=== PATIENT | female | born 1980 | race Hispanic/Latino ===

== ENCOUNTER 2019-09-10 12:00 | Emergency (ER) | payer SELFPAY ==
[2019-09-10 12:55] LABS: #Lymphocytes 1.6 thou/uL (1.20-3.40); #Monocytes 0.5 thou/uL (0.11-0.59); %Basophils 0.3 % (0.0-1.0); %Eosinophils 0.2 % (0.0-10.0); %Lymphocytes 26.4 % (21.0-51.0); %Monocytes 8.7 % (0.0-10.0); %Neutrophils 64.4 % (42.0-75.0); Hemoglobin 13.3 g/dL (12.0-16.0); Mean Corpuscular HGB CONC 32.5 g/dL (32.0-36.0); Mean Corpuscular Hemoglobin 29.5 pg (27.0-31.0); Mean Corpuscular Volume 90.8 fL (78.0-98.0); Mean Platelet Volume 8.5 fL (7.4-10.4); Platelet Count 304 thou/uL (130-400); RBC Distribution Width 12.3 % (11.5-14.5); Red Blood Cell (RBC) Count 4.52 mill/uL (4.20-5.40); White Blood Cell (WBC) Count 6.2 thou/uL (4.8-10.8)
--- NOTE | 2019-09-10 13:49 | ULT ---
ULTRASOUND PELVIC ULTRASOUND TRANSVAGINAL DOPPLER DUPLEX: DATE: 09/10/2019 HISTORY: 39-year-old female presents with vaginal bleeding and pelvic pain, with positive test TECHNIQUE: Transabdominal transducer and endovaginal transducer used to visualize intrapelvic contents with segura scale, color-flow, and spectral analysis. FINDINGS: Intrapelvic contents are almost completely obscured on the transabdominal images. All findings are ba sed on transvaginal images. Uterus: Retroverted/retroflexed. Endometrial stripe: 1.2 cm (12 mm). No intrauterine gestational sac visualized. No significant free fluid identified. Right ovary: 2 x 3 x 1.5 cm. Left ovary: 2 x 3 x 2 cm. Blood flow demonstrated in both ovaries by Doppler. 1.3 cm left ovarian simple cyst consistent with dominant follicle. Although no ectopic is visualized, a negative ultrasound does not ruled out. IMPRESSION: No intrauterine gestation identified.
== END 2019-09-10 14:06 | disposition home or self-care (01) ==
LOC: ERS 12:00
DX: O20.0 Threatened abortion (principal); Z3A.01 Less than 8 weeks gestation of pregnancy
CPT/HCPCS: 36415; 76856; 84702; 85025; 86900; 86901

== ENCOUNTER 2019-10-01 09:10 | Emergency (ER) | payer SELFPAY ==
[2019-10-01 09:52] LABS: #Basophils 0.1 thou/uL (0.0-0.2); #Lymphocytes 1.7 thou/uL (1.20-3.40); #Monocytes 0.6 thou/uL (0.11-0.59); #Neutrophils 4.5 thou/uL (1.40-6.50); %Basophils 0.9 % (0.0-1.0); %Eosinophils 0.4 % (0.0-10.0); %Lymphocytes 24.9 % (21.0-51.0); %Monocytes 8.6 % (0.0-10.0); %Neutrophils 65.2 % (42.0-75.0); Hemoglobin 13.1 g/dL (12.0-16.0); Mean Corpuscular HGB CONC 33.2 g/dL (32.0-36.0); Mean Corpuscular Hemoglobin 30.3 pg (27.0-31.0); Mean Corpuscular Volume 91.4 fL (78.0-98.0); Mean Platelet Volume 8.2 fL (7.4-10.4); Platelet Count 310 thou/uL (130-400); RBC Distribution Width 12.2 % (11.5-14.5); Red Blood Cell (RBC) Count 4.33 mill/uL (4.20-5.40)
[2019-10-01 10:18] LABS: Bilirubin Negative (Negative); Blood, Urine 3+ (Negative); Clarity Clear (Clear); Glucose, Urine (Dipstick) Normal (Negative); Ketone, Urine Negative (Negative); Leukocyte Negative Leu/uL (Negative); Nitrite Negative (Negative); Protein, Urine (Dipstick) Negative (Neg-Trace); RBC/HPF Greater than 50 HPF (0-3); Specific Gravity, Urine 1.006 (1.002-1.036); Squamous Epithelial 0-3 HPF (0-3); Urobilinogen Normal mg/dL (Less than 2)
[2019-10-01 10:19] LABS: Bacteria/HPF 1+ HPF (None Seen)
--- NOTE | 2019-10-01 11:35 | ULT ---
FIRST TRIMESTER OBSTETRICAL ULTRASOUND INDICATION: Elevated hCG and positive test TECHNIQUE: Grayscale, M-mode Doppler, color Doppler and spectral Doppler images were obtained. Serge paula is focused on the clinical indication. Transabdominal and transvaginal exam was performed. COMPARISON: Prior examination dated 09/10/2019 FINDINGS: Uterus: The uterus measured 6.7 x 4.4 x 5.3 cm..Endometrial stripe measured 6 mm Intrauterine gestation: None. Yolk Sac:Not visible. Pole : Not visible heart rate: Not applicable Subchorionic Hemorrhage: Not applicable Other: There is an extra-axial mass seen adjacent to the left adnexa measuring 2.8 x 2.5 x 3.9 cm Ovaries: Right ovary: Right ovary measures 2.5 x 1.5 x 3.0 cm. Normalvascular flow. Left ovary: Left ovary measures 2.6 x 2.3 x 2.2 cm. Normalvascular flow IMPRESSION: 1. No intrauterine gestation demonstrated. There is an extrauterine mass seen adjacent to the left ad nexa measuring 3.9 x 2.8 x 2.5 cm. Given history of increasing beta hCG from the comparison exam, findings are suspicious for left-sided ectopic . SECURITY INCIDENT HANDLER consultation is recommended.
[2019-10-01] MEDS ORDERED: Acetaminophen 500 MG TAB ONE (13:26)
[2019-10-01 13:38] LABS: ALT (SGPT) 29 U/L (8-55); AST (SGOT) 19 U/L (5-34); Albumin 4.4 g/dL (3.5-5.0); Alkaline Phosphatase 82 U/L (40-110); Anion Gap 14 mmol/L (10-20); BUN (Urea Nitrogen) 11 mg/dL (7.0-18.7); Bilirubin, Total 0.2 mg/dL (0.2-1.2); Calc. Creatinine Clearance 0 mL/min (70-130); Calcium 9.3 mg/dL (7.8-10.44); Carbon Dioxide 25 mmol/L (22-29); Chloride 102 mmol/L (98-107); Estimated GFR-MDRD Greater than 90; Globulin 3.5 g/dL (2.4-3.5); Glucose 104 mg/dL (70-105); Potassium 4.5 mmol/L (3.5-5.1); Protein, Total 7.9 g/dL (6.0-8.3); Sodium 136 mmol/L (136-145)
[2019-10-01] MEDS ORDERED: Methotrexate Sodium/PF 100 MG in Syringe 0 ML IM SCH (14:45)
[2019-10-01] MEDS ORDERED: METHOTREXATE SODIUM IM SCH (14:45)
--- NOTE | 2019-10-01 21:27 | CON ---
DATE OF CONSULTATION: 10/01/2019 REQUESTING PHYSICIAN: Dr. Vail, ER physician. REASON FOR CONSULTATION: Suspected ectopic . HISTORY OF PRESENT ILLNESS: Ms. Rodgers is a 39-year-old , Lao-speaking female, G3, P2 with a certain last menstrual period of 08/02/2019, who presented to the ER complaining of intermittent abdominal discomfort and vaginal bleeding. Of note, it is the fact that she was seen in the emergency room on September 09 and told that she had a miscarriage. Beta HCG at that time was 320. She was seen at [facility] today and was told that her labs were abnormal and that she should report to the emergency room. Here in the ER, her beta-HCG has only climbed to 707 and an ultrasound shows an empty uterus. No free fluid in the pelvis and a left adnexal mass suspicious for ectopic . PAST OBSTETRICAL HISTORY: Includes 2 previous vaginal deliveries at term. PAST MEDICAL HISTORY: None. PAST SURGICAL HISTORY: None. CURRENT MEDICATIONS: 1. vitamins. 2. Occasional Tylenol. ALLERGIES: NO KNOWN ALLERGIES. SOCIAL HISTORY: Denies tobacco, alcohol, or drug use. She also denies history of gonorrhea, chlamydia, or severe pelvic infection. FAMILY HISTORY: Unremarkable. REVIEW OF SYSTEMS: Denies nausea, vomiting, fever, or chills. PHYSICAL EXAMINATION: VITAL SIGNS: In the ER, her vital signs are stable. She is afebrile. Her pulse is in the 90s. GENERAL: She appears concerned, but is in no acute distress. Interview is obtained through the automatic punch press operator. ABDOMEN: Shows no guarding or rebound. Pelvic examination shows a small amount of blood in the vault. Her cervix is closed. There is mild tenderness to cervical motion, but no extreme symptomatology. LABORATORY DATA: White count 7.0, hemoglobin and hematocrit 13.1, hematocrit 39.6, platelet count 310,000. Sodium 136, potassium 4.5, BUN 11, creatinine 0.68, glucose 104, total bilirubin 0.2, AST and ALT are 19 and 29 respectively. Alkaline phosphatase 82. Beta HCG today is 707.12. IMAGING: Formal pelvic ultrasound shows a uterus measuring 6.7 x 4.4 x 5.3. An endometrial stripe of only 6 mm is seen. A left adnexal mass measuring 2.8 x 2.5 x 3.9 is noted. ASSESSMENT: Suspected ectopic . PLAN: At this time, the patient appears to be an excellent candidate for methotrexate therapy. Via the automatic punch press operator, the risks, benefits, and alternatives of methotrexate was discussed with her in detail. She states that she will indeed follow up if methotrexate is given. Plan at this time is to administer 50 mg/m2 IM and to have her report back on day #4 and again on day #7. I have instructed the ER staff that she may see a flare on day #4, but that there should be a 15% decrease between day #4 and day #7. She voiced understanding of her instructions. Of note, also her blood type is A positive. Job ID: [id number]
== END 2019-10-01 16:25 | disposition home or self-care (01) ==
LOC: ERS 09:10
DX: O00.90 Unspecified ectopic pregnancy without intrauterine pregnancy (principal)
CPT/HCPCS: 36415; 76856; 80053; 81003; 81015; 84702; 85025; 86900; 86901; J9250

== ENCOUNTER 2019-10-05 15:15 | Emergency (ER) | payer SELFPAY | END 2019-10-05 18:13 | disposition home or self-care (01) | LOC: ERS 15:15 | DX: O00.90 Unspecified ectopic pregnancy without intrauterine pregnancy (principal); N93.9 Abnormal uterine and vaginal bleeding, unspecified; Z3A.00 Weeks of gestation of pregnancy not specified | CPT/HCPCS: 36415; 84702; 96372; 99284 ==

== ENCOUNTER 2020-03-02 21:37 | Observation (INO) | payer OTHER, SELFPAY ==
[2020-03-02] MEDS ORDERED: Morphine 4 MG/ML VIAL ONE (23:11)
[2020-03-02] MEDS ORDERED: Ondansetron PF 4 MG/2 ML Vial ONE (23:11)
[2020-03-02] MEDS ORDERED: Boostrix 0.5 ML (Tdap) VIAL ONE (23:11)
[2020-03-02 23:25] LABS: #Lymphocytes 1.1 thou/uL (1.20-3.40); #Monocytes 0.3 thou/uL (0.11-0.59); #Neutrophils 4.7 thou/uL (1.40-6.50); %Basophils 0.6 % (0.0-1.0); %Lymphocytes 18.4 % (21.0-51.0); %Monocytes 4.3 % (0.0-10.0); %Neutrophils 76.6 % (42.0-75.0); Hemoglobin 12.8 g/dL (12.0-16.0); Mean Corpuscular HGB CONC 32.6 g/dL (32.0-36.0); Mean Corpuscular Hemoglobin 28.3 pg (27.0-31.0); Mean Corpuscular Volume 86.9 fL (78.0-98.0); Mean Platelet Volume 8.3 fL (7.4-10.4); Platelet Count 319 thou/uL (130-400); RBC Distribution Width 12.7 % (11.5-14.5); Red Blood Cell (RBC) Count 4.51 mill/uL (4.20-5.40); White Blood Cell (WBC) Count 6.2 thou/uL (4.8-10.8)
[2020-03-02 23:45] LABS: ALT (SGPT) 13 U/L (8-55); AST (SGOT) 10 U/L (5-34); Albumin 4.1 g/dL (3.5-5.0); Alkaline Phosphatase 55 U/L (40-110); Anion Gap 15 mmol/L (10-20); BUN (Urea Nitrogen) 10 mg/dL (7.0-18.7); Bilirubin, Total Less than 0.2 mg/dL (0.2-1.2); Calc. Creatinine Clearance 0 mL/min (70-130); Calcium 8.6 mg/dL (7.8-10.44); Carbon Dioxide 22 mmol/L (22-29); Chloride 109 mmol/L (98-107); Globulin 4.1 g/dL (2.4-3.5); Glucose 125 mg/dL (70-105); Protein, Total 8.2 g/dL (6.0-8.3); Sodium 142 mmol/L (136-145)
[2020-03-03 05:09] VITALS: BMI 32.8
[2020-03-03] MEDS ORDERED: Morphine 4 MG/ML VIAL SLOW IVP PRN (05:09)
[2020-03-03] MEDS ORDERED: Ondansetron ODT 4 MG TAB SL PRN (05:15)
[2020-03-03] MEDS ORDERED: Ondansetron PF 4 MG/2 ML Vial IVP PRN (05:15)
[2020-03-03 05:20] LABS: SARS-CoV-2 MS2 Positive; SARS-CoV-2 N Gene Negative; SARS-CoV-2 S Gene Negative; SARS-CoV-2 by NAA Not Detected (NotDetected); SARS-CoV-2 orf1ab Negative
[2020-03-03] MEDS ORDERED: CEFAZOLIN 2 GM in Premix Bag 1 BAG IVPB SCH ×2 (07:30→08:00)
--- NOTE | 2020-03-03 08:33 | RAD ---
PORTABLE CHEST: DATE: 03/02/2020. PROVIDED CLINICAL HISTORY: Preop. FINDINGS: Cardiac and mediastinal silhouette is within normal limits. No focal consolidation, pleural fluid, o r pneumothorax apparent. IMPRESSION: No evidence for an acute cardiopulmonary process. POS: MELY
--- NOTE | 2020-03-03 08:34 | RAD ---
LEFT ANKLE RADIOGRAPHS 3 VIEWS: DATE: 03/02/2020. PROVIDED CLINICAL HISTORY: Laceration. FINDINGS: Posterior splint material is noted in place. There is laceration involving the posterior aspects of the distal foreleg in the expected location of the Achilles tendon. There is no evidence for a fract ure or radiopaque foreign body. IMPRESSION: As above. POS: MELY
[2020-03-03] MEDS ORDERED: diphenhydrAMINE 50 MG/ML VIAL IVP SCH (08:45)
[2020-03-03] MEDS ORDERED: Dexamethasone 20 MG/5 ML VIAL ONE (11:48)
[2020-03-03] MEDS ORDERED: Ketorolac Tromethamine 30 MG/ML VIAL ONE (11:48)
[2020-03-03] MEDS ORDERED: diphenhydrAMINE 50 MG/ML VIAL ONE ×2 (11:48→19:08)
[2020-03-03] MEDS ORDERED: Lidocaine 1% PF 5 ML VIAL ONE (11:48)
[2020-03-03] MEDS ORDERED: Ondansetron PF 4 MG/2 ML Vial ONE (11:48)
[2020-03-03] MEDS ORDERED: PROPOFOL 200 MG/20 ML VIAL ONE (11:48)
[2020-03-03] MEDS ORDERED: Bupivacaine HCl 0.5%/Epinephrine 1:200,000/PF 30 ml Vial ONE (11:48)
[2020-03-03] MEDS ORDERED: Fentanyl 100 MCG/2 ML VIAL ONE ×2 (14:34→17:27)
[2020-03-03] MEDS ORDERED: Midazolam HCl 2 mg/2 ml Vial ONE (14:34)
[2020-03-03] MEDS ORDERED: Neomycin-Polymyxin 1 ML AMP ONE (14:49)
[2020-03-03] MEDS ORDERED: Bupivacaine PF 0.5% 30 ML VIAL ONE (14:49)
[2020-03-03] MEDS ORDERED: HYDROcodone/Acetaminophen 5/325 mg Tablet PO PRN (17:34)
[2020-03-03] MEDS ORDERED: Fentanyl 100 MCG/2 ML VIAL SLOW IVP PRN (17:36)
--- NOTE | 2020-03-03 18:53 | OP ---
DATE OF PROCEDURE: 03/03/2020 OPERATION PERFORMED: Open repair of left Achilles tendon laceration. PREOPERATIVE DIAGNOSIS: Transected left Achilles tendon. POSTOPERATIVE DIAGNOSIS: Transected left Achilles tendon. COMPLICATIONS: None. ESTIMATED BLOOD LOSS: Minimal. INDUSTRIAL ECOLOGY TECHNICIAN: Ranjith Levi PA-C. IMPLANTS: None. INDICATIONS: Ms. Rodgers is a 40-year-old female who has lacerated her Achilles tendon. She has transected the tendon completely. She has been indicated for Achilles tendon repair in the operating room. Risks have been reviewed in detail. She has elected to proceed with the operation. DESCRIPTION OF PROCEDURE: Ms. Rodgers was identified in the preoperative holding area. Her correct extremity was marked. She was carried to the operating room. She was positioned supine. General anesthesia was induced. A multidisciplinary time-out was performed. The left lower extremity was prepped and draped in sterile fashion. At this point, we proceeded to explore the wound. We opened the traumatic laceration and extended it proximally and distally. We exposed the underlying transected Achilles tendon. There was complete transection. We exposed the stump distally, which was approximately 3 cm in the proximal tendon. At this point, we thoroughly irrigated with copious lavage, debriding the underlying tissues. We then proceeded to repair the tendon. We have used a #2 FiberWire suture in a Krackow fashion distally and then a 2nd suture was placed up and down the tendon stump. Next, we passed these through the proximal aspect of the tendon and reduced the tendon into its anatomic position. We then tied these down. Finally, we oversewed the repair with a 2-0 Vicryl suture. At this point, a second thorough lavage was performed. We then closed the superficial tissues with nylon suture. A sterile dressing was applied. The patient was taken to the recovery room in good condition after a splint was placed. Job ID: [id number]
[2020-03-03] MEDS ORDERED: Albuterol Sulfate 1.25 MG/3 ML NEB ONE (19:34)
[2020-03-03] MEDS ORDERED: Famotidine/PF 20 mg/2ml Vial ONE (19:46)
[2020-03-03] MEDS ORDERED: FLU VACC QS2020-21(6MOS UP)/PF 60 MCG/0.5 ML SYRINGE IM ONE (21:00)
[2020-03-04 12:44] VITALS: BP 110/73; TEMP 98.4
--- NOTE | 2020-03-06 12:17 | EKG ---
Test Reason : PRE OP Blood Pressure : / mmHG Vent. Rate : 120 BPM Atrial Rate : 120 BPM P-R Int : 140 ms QRS Dur : 086 ms QT Int : 324 ms P-R-T Axes : 045 -23 013 degrees QTc Int : 457 ms Sinus tachycardia Inferior infarct , age undetermined Possible Anterior infarct , age undetermined Abnormal ECG Confirmed by GLENNA TRACEY ([id number]), editor news NABEEL RAMIREZ ([id number]) on 03/06/2020 12:17:18 PM Referred By: DEJAN WALLACE Confirmed By:GLENNA TRACEY
--- NOTE | 2020-03-10 13:35 | DIS ---
DATE OF ADMISSION: 03/02/2020 DATE OF DISCHARGE: 03/04/2020 PREOPERATIVE DIAGNOSIS: Transected left Achilles tendon. POSTOPERATIVE DIAGNOSIS: Transected left Achilles tendon. PROCEDURE PERFORMED: Open repair of left Achilles tendon laceration. BRIEF HOSPITAL COURSE: This is a 40-year-old female, who lacerated her left Achilles tendon when she dropped a coffee cup on her leg. She was indicated for the above-mentioned procedure for repair of this Achilles tendon. She did well in the operative suite. Postoperatively, she was admitted back to her room. She worked with Physical and Occupational therapy. Her pain was managed. She was tolerating a diet and voiding without difficulty. She was indicated for discharge home on postoperative day #1. DISCHARGE DISPOSITION: Home with family. DISCHARGE CONDITION: Stable. DISCHARGE INSTRUCTIONS: The patient will follow up with Dr. Wesley as scheduled in the [facility]. She will keep her surgical site clean, dry, and intact and her dressings intact until followup. DISCHARGE MEDICATIONS: See OSWALDO. Job ID: [id number]
--- NOTE | 2020-04-16 06:42 | OP ---
DATE OF PROCEDURE: 03/03/2020 ADDENDUM: The middle school assistant principal surgeon was responsible for positioning the patient, preparing the injured extremity, applying the tourniquet, and assisting in preparation for surgery. The middle school assistant principal was instrumental in reducing the injured limb by applying traction and reduction maneuvers as well as holding retractors and reduction tools. The middle school assistant principal also was instrumental in assisting in exposure throughout the operation using appropriate retractors. The middle school assistant principal participated in closure of the operative site as well as dressing application and splint application. Job ID: [id number]
== END 2020-03-04 13:19 | disposition home or self-care (01) ==
LOC: ERS 21:37 → ERHOLD 22:46 → T4-B 03-03 04:48
PROVIDERS: ADMIT Orthopaedic Surgery; ATTEND Orthopaedic Surgery
PROC: 0LQP0ZZ Repair Left Lower Leg Tendon, Open Approach (ICD-10-PCS; principal; 2020-03-04)
DX: S86.012A Strain of left Achilles tendon, initial encounter (principal); Z20.828 Contact with and (suspected) exposure to other viral communicable diseases; Z88.5 Allergy status to narcotic agent; W25.XXXA Contact with sharp glass, initial encounter; Z23 Encounter for immunization
CPT/HCPCS: 29515; 36415; 71045; 80053; 85025; 87635; 90471; 90662; 90715; 93005; 96374; 96375; 96376; G0008; G0378; J0690; J1100; J1200; J1885; J2250; J2270; J2405; J2704; J3010; S0020; S0028; U0003

== ENCOUNTER 2020-03-21 22:28 | Emergency (ER) | payer SELFPAY ==
[2020-03-22 00:49] LABS: #Basophils 0.1 thou/uL (0.0-0.2); #Lymphocytes 2.4 thou/uL (1.20-3.40); #Monocytes 0.6 thou/uL (0.11-0.59); #Neutrophils 4.8 thou/uL (1.40-6.50); %Basophils 0.8 % (0.0-1.0); %Eosinophils 0.4 % (0.0-10.0); %Lymphocytes 30.2 % (21.0-51.0); %Monocytes 7.5 % (0.0-10.0); Hemoglobin 13.9 g/dL (12.0-16.0); Mean Corpuscular HGB CONC 34.2 g/dL (32.0-36.0); Mean Corpuscular Hemoglobin 29.8 pg (27.0-31.0); Mean Platelet Volume 8.2 fL (7.4-10.4); Platelet Count 317 thou/uL (130-400); RBC Distribution Width 12.4 % (11.5-14.5); Red Blood Cell (RBC) Count 4.68 mill/uL (4.20-5.40); White Blood Cell (WBC) Count 7.9 thou/uL (4.8-10.8)
[2020-03-22 01:10] LABS: ALT (SGPT) 27 U/L (8-55); AST (SGOT) 17 U/L (5-34); Albumin 4.1 g/dL (3.5-5.0); Alkaline Phosphatase 80 U/L (40-110); Anion Gap 14 mmol/L (10-20); BUN (Urea Nitrogen) 14 mg/dL (7.0-18.7); Bilirubin, Total 0.2 mg/dL (0.2-1.2); Calc. Creatinine Clearance 0 mL/min (70-130); Calcium 8.9 mg/dL (7.8-10.44); Carbon Dioxide 23 mmol/L (22-29); Chloride 104 mmol/L (98-107); Globulin 4.1 g/dL (2.4-3.5); Glucose 110 mg/dL (70-105); Potassium 4.2 mmol/L (3.5-5.1); Protein, Total 8.2 g/dL (6.0-8.3); Sodium 137 mmol/L (136-145)
== END 2020-03-22 02:35 | disposition home or self-care (01) ==
LOC: ERS 22:28
DX: G89.18 Other acute postprocedural pain (principal); M25.572 Pain in left ankle and joints of left foot
CPT/HCPCS: 36415; 80053; 85025; 99283

== ENCOUNTER 2020-10-02 23:07 | Emergency (ER) | payer SELFPAY ==
[2020-10-03 00:02] LABS: #Basophils 0.1 thou/uL (0.0-0.2); #Lymphocytes 2.4 thou/uL (1.20-3.40); #Monocytes 0.5 thou/uL (0.11-0.59); #Neutrophils 4.2 thou/uL (1.40-6.50); %Basophils 0.7 % (0.0-1.0); %Eosinophils 0.7 % (0.0-10.0); %Lymphocytes 32.9 % (21.0-51.0); %Monocytes 7.3 % (0.0-10.0); %Neutrophils 58.4 % (42.0-75.0); Hemoglobin 12.4 g/dL (12.0-16.0); Mean Corpuscular HGB CONC 33.9 g/dL (32.0-36.0); Mean Corpuscular Hemoglobin 30.4 pg (27.0-31.0); Mean Corpuscular Volume 89.7 fL (78.0-98.0); Mean Platelet Volume 8.1 fL (7.4-10.4); Platelet Count 283 thou/uL (130-400); RBC Distribution Width 12.7 % (11.5-14.5); Red Blood Cell (RBC) Count 4.09 mill/uL (4.20-5.40); White Blood Cell (WBC) Count 7.2 thou/uL (4.8-10.8)
[2020-10-03 00:23] LABS: ALT (SGPT) 13 U/L (8-55); AST (SGOT) 12 U/L (5-34); Albumin 3.9 g/dL (3.5-5.0); Alkaline Phosphatase 66 U/L (40-110); Anion Gap 11 mmol/L (10-20); BUN (Urea Nitrogen) 11 mg/dL (7.0-18.7); Bilirubin, Total 0.2 mg/dL (0.2-1.2); Calc. Creatinine Clearance 0 mL/min (70-130); Calcium 8.9 mg/dL (7.8-10.44); Carbon Dioxide 27 mmol/L (22-29); Chloride 105 mmol/L (98-107); Globulin 3.5 g/dL (2.4-3.5); Glucose 148 mg/dL (70-105); Potassium 3.9 mmol/L (3.5-5.1); Protein, Total 7.4 g/dL (6.0-8.3); Sodium 139 mmol/L (136-145)
[2020-10-03] MEDS ORDERED: Iopamidol-370 76% 500 ML 1 ML ONE (08:46)
== END 2020-10-03 04:35 | disposition home or self-care (01) ==
LOC: ERS 23:07
DX: R07.9 Chest pain, unspecified (principal); R06.00 Dyspnea, unspecified
CPT/HCPCS: 36415; 71045; 71275; 80053; 84484; 85025; 85379; 93005; Q9967